=== PATIENT | female | born 1980 | race Caucasian/White ===

== ENCOUNTER → 2020-07-27 17:37 | Outpatient (CLI) | payer OTHER, SELFPAY ==
--- NOTE | 2020-07-27 | DI.MRI.S_ITS ---
PROCEDURE: MR PELVIS WO CON INDICATIONS: Sacrococcygeal disorders, not elsewhere classified TECHNIQUE: Noncontrast axial and oblique coronal T1 spin echo and STIR as well as sagittal STIR through the sacroiliac joints. COMPARISON: [facility] Outside [facility], CT, CT PELVIS WITHOUT CONTRAST, 06/18/2020, 7:19. [facility] Outside [facility], CR, XR SACRUM AND COCCYX, 04/29/2020, 7:31. FINDINGS: Image quality: Excellent. Bones: The sacroiliac joints demonstrate minimal joint space narrowing and osteophytosis inferiorly with minimal periarticular edema on the right. No adjacent bone marrow edema to suggest active sacroiliitis. No bony erosions. No bony ankylosis. No suspicious marrow space occupying lesions. Soft tissues: The visualized sacral plexus nerve roots appear within normal limits. No presacral masses. Visualized bowel loops appear normal in caliber and wall thickness. There is minimal free fluid within the visualized pelvis which appears within physiologic limits. IMPRESSION: 1. 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 2. No evidence of active sacroiliitis, ankylosis, or bony erosions. Dictated by: Conner Perales M.D. on 07/28/2020 at 10:01 Approved by: Conner Perales M.D. on 07/28/2020 at 10:09
== END ==
PROVIDERS: Referring Provider Orthopaedic Surgery Orthopaedic Surgery of the Spine; Visit Provider Orthopaedic Surgery Orthopaedic Surgery of the Spine
DX: M53.3 Sacrococcygeal disorders, not elsewhere classified (principal); M47.818 Spondylosis without myelopathy or radiculopathy, sacral and sacrococcygeal region
CPT/HCPCS: 72195

== ENCOUNTER → 2021-05-03 11:14 | Outpatient (CLI) | payer OTHER, SELFPAY ==
[2021-05-03 13:22] LABS: COVID19 -Nasal RAPID Negative (Negative)
== END ==
PROVIDERS: PCP Family Medicine; Visit Provider Physical Medicine & Rehabilitation
DX: Z20.822 Contact with and (suspected) exposure to COVID-19 (principal)
CPT/HCPCS: 87635; C9803

== ENCOUNTER 2021-05-04 14:56 | Outpatient (CLI) | payer OTHER, SELFPAY ==
[2021-05-04] VITALS (10 sets, daily range): BP systolic 103–137; BP diastolic 58–68; PULSE 65–82; RESP 12–24; TEMP 36.6; O2SAT 97–100
--- NOTE | 2021-05-04 14:57 | DI.RAD.S_ITS ---
PROCEDURE: PAIN SI JOINT INJECTION INDICATIONS: COCCYDYNIA COMPARISON: None. FINDINGS: Fluoroscopic spot filming was performed to verify placement of spinal needles at the lower sacral level(s), as labeled on the films. Appropriate location(s) of the needle tip(s) was confirmed by injection of iodinated contrast. IMPRESSION: Needle placement the lower sacral level. Dictated by: Bro Lawrence M.D. on 05/04/2021 at 16:33 Approved by: Bro Lawrence M.D. on 05/04/2021 at 16:43
[2021-05-04] MEDS: MIDAZOLAM 2 MG/2 ML VIAL IV (15:52)
[2021-05-04] MEDS: IOPAMIDOL 15 ML VIAL 3 ML INJ (15:53)
[2021-05-04] MEDS: BUPIVACAINE 0.5% (PF) VIAL 2 ML INJ (15:53)
[2021-05-04] MEDS: BETAMETHASONE 30 MG/5 ML MDV 12 MG INJ (15:53)
[2021-05-04] MEDS: fentaNYL 100 MCG/2 ML INJ (15:53)
--- NOTE | 2021-05-04 16:08 | P.PCN_ITS ---
Date/Time/Diagnoses Date of procedure: 05/04/21 Time of procedure: 16:08 Pre-procedure diagnosis: Coccydynia Post-procedure diagnosis: same Procedure Notes Procedure: Fluoroscopically guided contrast controlled Coccyx Injection Indications: Coccydynia Physician: Kei Hummel Total Fluoroscopy time (seconds): 14 Total sedation minutes: 15 Procedure in detail & Post-procedure care: DESCRIPTION OF PROCEDURE Fluoroscopic guided, contrast controlled coccyx injection Following review of allergies and review of potential side effects and complications, including, but not necessarily limited to, infection, allergic reaction, local tissue breakdown, temporary as well as permanent nerve injury, paralysis, stroke and possible , the patient indicated that they understood and agreed to proceed. An informed consent was signed by the patient, witnessed by a nurse, and placed in the patient's chart. Additionally, other treatment options including modalities, medications, and physical therapy were reviewed with the patient. After review of previous anaesthesic history and IV conscious sedation the patient was deemed safe to proceed with today?s procedure with IV conscious sedation as ASA class II designation. Safety time-out was performed to confirm patient ID, procedure to be performed and site of procedure. IV sedation was accomplished with a combination of 2mg of Versed and 50mcg of Fentanyl administered by the RN after DO order, titrated to patient comfort during the course of the procedure while the patient remained responsive to all verbal commands. In the prone position following sterile prep and drape of the pelvic region, the hyper lucency on in the inferior aspect of the coccyx joint was identified fluoroscopically the skin was anesthetized be a 25 gauge 1 eventual with approximately 2cc of 1% lidocaine solution. At this point, a 22 gauge 3inch spinal needle was atraumatically introduced and advanced under fluoroscopic guidance into the inferior aspect of the left sacroiliac joint. Following n egative aspiration, approximately 0.3cc of Isovue-300 was injected confirming intra-articular placement without vascular uptake. Radiographic data, including multiple fluoroscopic views of the pelvis, reveals a spinal needle in the coccyx. Subsequent view show flow contrast tear superiorly and inferiorly within the joint capsule without vascular intrathecal uptake. At this point a total of 1cc or 0.5% Marcaine was combined with 1cc of 6mg of betamethasone was injected without incident. The patient tolerated the procedure well without signs or symptoms of complications prior to transfer to the recovery area for further monitoring. The patient was then transferred to the recovery area with a bur observed for an appropriate time after the injection. The patient reverted a vas score of 7 prior to the procedure and postprocedure vas of 1. POSTOP INSTRUCTIONS The patient was provided with a pain like to continue to record the patient's response to the target specific procedure prior to the patient's follow-up visit with the referring physician. Additionally, specific post injection care instructions and a contact number to our office were provided if concerns arise regarding the possible complications associated with procedure are suspected.
== END 2021-05-04 16:25 | disposition home or self-care (01) ==
PROVIDERS: PCP Family Medicine; Referring Provider Physical Medicine & Rehabilitation; Visit Provider Physical Medicine & Rehabilitation
DX: M53.3 Sacrococcygeal disorders, not elsewhere classified (principal)
CPT/HCPCS: 27096; 99152; J0702; J2250; J3010

== ENCOUNTER → 2021-08-30 | Outpatient (CLI) | payer OTHER, SELFPAY ==
[2021-08-30 14:43] LABS: COVID19 -Nasal RAPID Negative (Negative)
== END ==
PROVIDERS: Visit Provider Physical Medicine & Rehabilitation
DX: Z20.822 Contact with and (suspected) exposure to COVID-19 (principal)
CPT/HCPCS: 87635; C9803

== ENCOUNTER 2021-08-31 15:18 | Outpatient (CLI) | payer OTHER, SELFPAY ==
[2021-08-31] VITALS (8 sets, daily range): BP systolic 108–135; BP diastolic 61–81; PULSE 70–86; RESP 13–20; O2SAT 98–100
--- NOTE | 2021-08-31 15:19 | DI.RAD.S_ITS ---
PROCEDURE: PAIN SI JOINT INJECTION INDICATIONS: COCCYGEAL DYSFUNTION COMPARISON: [facility], XA, PAIN SI JOINT INJECTION, 05/04/2021, 15:52. FINDINGS: Fluoroscopic spot filming was performed to verify placement of spinal needles at the distal coccyx level(s), as labeled on the films. Appropriate location(s) of the needle tip(s) was confirmed by injection of iodinated contrast. IMPRESSION: Fluoroscopically image needle placement of the distal coccyx. Dictated by: Coco Muhammad M.D. on 08/31/2021 at 17:09 Approved by: Coco Muhammad M.D. on 08/31/2021 at 17:10
[2021-08-31] MEDS: MIDAZOLAM 2 MG/2 ML VIAL IV (16:06)
[2021-08-31] MEDS: BETAMETHASONE 30 MG/5 ML MDV 12 MG INJ (16:12)
[2021-08-31] MEDS: IOPAMIDOL 15 ML VIAL 3 ML INJ (16:12)
[2021-08-31] MEDS: BUPIVACAINE 0.25% (PF) VIAL 5 ML INJ (16:12)
--- NOTE | 2021-08-31 16:27 | P.PCN_ITS ---
Date/Time/Diagnoses Date of procedure: 08/31/21 Time of procedure: 16:27 Pre-procedure diagnosis: Coccydynia Post-procedure diagnosis: same Procedure Notes Procedure: Fluoroscopically guided contrast controlled Coccyx Injection Indications: Coccydynia Physician: Kei Hummel Total Fluoroscopy time (seconds): 12 Total sedation minutes: 14 Procedure in detail & Post-procedure care: DESCRIPTION OF PROCEDURE Fluoroscopic guided, contrast controlled coccyx injection Following review of allergies and review of potential side effects and complications, including, but not necessarily limited to, infection, allergic reaction, local tissue breakdown, temporary as well as permanent nerve injury, paralysis, stroke and possible , the patient indicated that they understood and agreed to proceed. An informed consent was signed by the patient, witnessed by a nurse, and placed in the patient's chart. Additionally, other treatment options including modalities, medications, and physical therapy were reviewed with the patient. After review of previous anaesthesic history and IV conscious sedation the patient was deemed safe to proceed with today?s procedure with IV conscious sedation as ASA class II designation. Safety time-out was performed to confirm patient ID, procedure to be performed and site of procedure. IV sedation was accomplished with a combination of 2mg of Versed administered by the RN after DO order, titrated to patient comfort during the course of the procedure while the patient remained responsive to all verbal commands. In the prone position following sterile prep and drape of the pelvic region, the hyper lucency on in the inferior aspect of the coccyx joint was identified fluoroscopically the skin was anesthetized be a 25 gauge 1 eventual with approximately 2cc of 1% lidocaine solution. At this point, a 22 gauge 3inch spinal needle was atraumatically introduced and advanced under fluoroscopic guidance into the inferior aspect of the coccyx joint. Following negative aspiration, approximately 0.3cc of Isovue-300 was injected confirming intra- articular placement without vascular uptake. Radiographic data, including multiple fluoroscopic views of the pelvis, reveals a spinal needle in the coccyx. At this point a total of 1cc or 0.5% Marcaine was combined with 1cc of 6mg of betamethasone was injected without incident. The patient tolerated the procedure well without signs or symptoms of complications prior to transfer to the recovery area for further monitoring. The patient was then transferred to the recovery area with a bur observed for an appropriate time after the injection. The patient reverted a vas score of 7 prior to the procedure and postprocedure vas of 1. POSTOP INSTRUCTIONS The patient was provided with a pain like to continue to record the patient's response to the target specific procedure prior to the patient's follow-up visit with the referring physician. Additionally, specific post injection care instructions and a contact number to our office were provided if concerns arise regarding the possible complications associated with procedure are suspected.
== END 2021-08-31 16:36 | disposition home or self-care (01) ==
LOC: RAD 15:19
PROVIDERS: Referring Provider Physical Medicine & Rehabilitation; Visit Provider Physical Medicine & Rehabilitation
DX: M53.3 Sacrococcygeal disorders, not elsewhere classified (principal)
CPT/HCPCS: 27096; 99152; J0702; J1100; J2250

== ENCOUNTER 2022-01-11 14:52 | Outpatient (CLI) | payer OTHER, SELFPAY ==
[2022-01-11] VITALS (8 sets, daily range): BP systolic 109–136; BP diastolic 59–75; PULSE 68–87; RESP 15–20; TEMP 36.7; O2SAT 98–100
--- NOTE | 2022-01-11 15:26 | DI.RAD.S_ITS ---
PROCEDURE: PAIN SI JOINT INJECTION INDICATIONS: COCCYDYNIA COMPARISON: [facility], CT, CT PELVIS WITHOUT CONTRAST, 06/18/2020, 7:19. MR, MR PELVIS WO CON, 07/27/2020, 18:13. FINDINGS: Fluoroscopic spot filming was performed to verify placement of spinal needles at the coccyx level(s), as labeled on the films. Appropriate location(s) of the needle tip(s) was confirmed by injection of iodinated contrast. IMPRESSION: Fluoroscopy for pain management. Dictated by: Cyndy Ramos M.D. on 01/12/2022 at 8:19 Approved by: Cyndy Ramos M.D. on 01/12/2022 at 8:19
[2022-01-11] MEDS: MIDAZOLAM 2 MG/2 ML VIAL IV (16:34)
[2022-01-11] MEDS: BUPIVACAINE 0.5% (PF) VIAL 2 ML INJ (16:38)
[2022-01-11] MEDS: IOPAMIDOL 15 ML VIAL 3 ML INJ (16:39)
[2022-01-11] MEDS: DEXTROSE 25 % IN WATER 2.5 GM/10 ML SYRINGE IV (16:40)
--- NOTE | 2022-01-11 16:48 | PM.PROC.IR.1 ---
Date/Time/Diagnoses Date of procedure: 01/11/22 Time of procedure: 16:48 Pre-procedure diagnosis: Coccydynia Post-procedure diagnosis: same Procedure Notes Procedure: Fluoroscopically guided contrast controlled Coccyx Prolotherapy Injection Indications: Coccydynia Physician: Kei Hummel Total Fluoroscopy time (seconds): 5 Total sedation minutes: 10 Procedure in detail & Post-procedure care: DESCRIPTION OF PROCEDURE Fluoroscopic guided, contrast controlled coccyx prolotherapy injection Following review of allergies and review of potential side effects and complications, including, but not necessarily limited to, infection, allergic reaction, local tissue breakdown, temporary as well as permanent nerve injury, paralysis, stroke and possible , the patient indicated that they understood and agreed to proceed. An informed consent was signed by the patient, witnessed by a nurse, and placed in the patient's chart. Additionally, other treatment options including modalities, medications, and physical therapy were reviewed with the patient. After review of previous anaesthesic history and IV conscious sedation the patient was deemed safe to proceed with today?s procedure with IV conscious sedation as ASA class II designation. Safety time-out was performed to confirm patient ID, procedure to be performed and site of procedure. IV sedation was accomplished with a combination of 2mg of Versed administered by the RN after DO order, titrated to patient comfort during the course of the procedure while the patient remained responsive to all verbal commands. In the prone position following sterile prep and drape of the pelvic region, the hyper lucency on in the inferior aspect of the coccyx joint was identified fluoroscopically the skin was anesthetized be a 25 gauge 1.5 needle with approximately 2cc of 1% lidocaine solution. At this point, a 25 gauge 1.5 inch needle was atraumatically introduced and advanced under fluoroscopic guidance into the inferior aspect of the coccyx joint and sacro-coccyxgeal ligament complex. Following negative aspiration, approximately 0.3cc of Isovue-300 was injected confirming intra-articular placement without vascular uptake. Radiographic data, including multiple fluoroscopic views of the pelvis, reveals a spinal needle in the coccyx. At this point a total of 10cc of 20% dextrose solution was injected to the sacro-coccygeal joint and ligamentous complex without incident. The patient tolerated the procedure well without signs or symptoms of complications prior to transfer to the recovery area for further monitoring. The patient was then transferred to the recovery area with a bur observed for an appropriate time after the injection. The patient reverted a vas score of 7 prior to the procedure and postprocedure vas of 1. POSTOP INSTRUCTIONS The patient was provided with a pain like to continue to record the patient's response to the target specific procedure prior to the patient's follow-up visit with the referring physician. Additionally, specific post injection care instructions and a contact number to our office were provided if concerns arise regarding the possible complications associated with procedure are suspected.
== END 2022-01-11 17:09 | disposition home or self-care (01) ==
PROVIDERS: Referring Provider Physical Medicine & Rehabilitation; Visit Provider Physical Medicine & Rehabilitation
DX: M53.3 Sacrococcygeal disorders, not elsewhere classified (principal)
CPT/HCPCS: 27096; 99152; J2250

== ENCOUNTER 2022-05-12 09:00 | Outpatient (CLI) | payer OTHER, SELFPAY ==
[2022-05-12] VITALS (8 sets, daily range): BP systolic 108–135; BP diastolic 57–78; PULSE 65–90; RESP 16–19; TEMP 36.4; O2SAT 97–100
--- NOTE | 2022-05-12 09:01 | DI.RAD.S_ITS ---
PROCEDURE: PAIN SI JOINT INJECTION INDICATIONS: COCCYDYNIA COMPARISON: [facility], XA, PAIN SI JOINT INJECTION, 01/11/2022, 17:39. FINDINGS: Fluoroscopic spot filming was performed to verify placement of spinal needles at the inferior coccyx level(s), as labeled on the films. Appropriate location(s) of the needle tip(s) was confirmed by injection of iodinated contrast. IMPRESSION: Inferior coccyx needle placement. Dictated by: Yodit Calixto M.D. on 05/13/2022 at 8:09 Approved by: Yodit Calixto M.D. on 05/13/2022 at 8:09
--- NOTE | 2022-05-12 09:58 | P.PCN_ITS ---
Date/Time/Diagnoses Date of procedure: 05/12/22 Time of procedure: 09:58 Pre-procedure diagnosis: Pre-procedure diagnosis: Coccydynia Post-procedure diagnosis: same Procedure Notes Procedure: Fluoroscopic guided, contrast controlled coccyx prolotherapy injection Total Fluoroscopy time (seconds): 6 Total sedation minutes: 10 Procedure in detail & Post-procedure care: DESCRIPTION OF PROCEDURE Fluoroscopic guided, contrast controlled coccyx prolotherapy injection Following review of allergies and review of potential side effects and complications, including, but not necessarily limited to, infection, allergic reaction, local tissue breakdown, temporary as well as permanent nerve injury, paralysis, stroke and possible , the patient indicated that they understood and agreed to proceed.? An informed consent was signed by the patient, witnessed by a nurse, and placed in the patient's chart.? Additionally, other treatment options including modalities, medications, and physical therapy were reviewed with the patient. After review of previous anaesthesic history and IV conscious sedation the patient was deemed safe to proceed with today?s procedure with IV conscious sedation as ASA class II designation. Safety time-out was performed to confirm patient ID, procedure to be performed and site of procedure. IV sedation was accomplished with a combination of 2mg of Versed administered by the RN after DO order, titrated to patient comfort during the course of the procedure while the patient remained responsive to all verbal commands. In the prone position following sterile prep and drape of the pelvic region, the hyper lucency on in the inferior aspect of the coccyx joint was identified fluoroscopically the skin was anesthetized be a 25 gauge 1.5 needle with approximately 2cc of 1% lidocaine solution.? At this point, a 25 gauge 1.5 inch needle was atraumatically introduced and advanced under fluoroscopic guidance into the inferior aspect of the coccyx joint and sacro-coccyxgeal ligament complex.? Following negative aspiration, approximately 0.3cc of Isovue-300 was injected confirming intra-articular placement without vascular uptake. Radiographic data, including multiple fluoroscopic views of the pelvis, reveals a spinal needle in the coccyx. ? At this point a total of 20cc of 20% dextrose solution was injected to the sacro-coccygeal joint and ligamentous complex without incident. The patient tolerated the procedure well without signs or symptoms of comp lications prior to transfer to the recovery area for further monitoring. The patient was then transferred to the recovery area with a bur observed for an appropriate time after the injection.? The patient reverted a vas score of 7 prior to the procedure and postprocedure vas of 1. POSTOP INSTRUCTIONS The patient was provided with a pain like to continue to record the patient's response to the target specific procedure prior to the patient's follow-up visit with the referring physician.? Additionally, specific post injection care instructions and a contact number to our office were provided if concerns arise regarding the possible complications associated with procedure are suspected.
[2022-05-12] MEDS: MIDAZOLAM 2 MG/2 ML VIAL IV (10:00)
[2022-05-12] MEDS: BUPIVACAINE 0.5% (PF) 10 ML VIAL 5 ML SUBCUT (10:06)
[2022-05-12] MEDS: IOPAMIDOL 15 ML VIAL 3 ML INJ (10:08)
[2022-05-12] MEDS: DEXTROSE 25 % IN WATER 2.5 GM/10 ML SYRINGE IV ×2 (10:08→10:12)
== END 2022-05-12 10:35 | disposition home or self-care (01) ==
PROVIDERS: Referring Provider Physical Medicine & Rehabilitation; Visit Provider Physical Medicine & Rehabilitation
DX: M53.3 Sacrococcygeal disorders, not elsewhere classified (principal)
CPT/HCPCS: 27096; 99152; J0702; J2250

== ENCOUNTER 2022-08-30 15:30 | Outpatient (CLI) | payer OTHER, SELFPAY ==
[2022-08-30] VITALS (9 sets, daily range): BP systolic 118–134; BP diastolic 57–66; PULSE 71–84; RESP 13–18; TEMP 36.6; O2SAT 97–100
--- NOTE | 2022-08-30 15:31 | DI.RAD.S_ITS ---
PROCEDURE: PAIN SI JOINT INJECTION INDICATIONS: COCCYGEAL DYSFUNCTION COMPARISON: [facility], XA, PAIN SI JOINT INJECTION, 05/12/2022, 10:05. FINDINGS: Fluoroscopic spot filming was performed to verify placement of spinal needles of the distal coccyx. Appropriate location(s) of the needle tip(s) was confirmed by injection of iodinated contrast. IMPRESSION: Intraprocedural examination within normal limits. Dictated by: Shane Rich M.D. on 08/30/2022 at 15:35 Approved by: Shane Rich M.D. on 08/30/2022 at 15:36
[2022-08-30] MEDS: MIDAZOLAM 2 MG/2 ML VIAL IV (15:57)
[2022-08-30] MEDS: DEXTROSE 25 % IN WATER 2.5 GM/10 ML SYRINGE 5 GM IV (16:01)
[2022-08-30] MEDS: BUPIVACAINE 0.5% (PF) 10 ML VIAL 2 ML INJ (16:01)
[2022-08-30] MEDS: IOPAMIDOL 15 ML VIAL 3 ML INJ (16:01)
--- NOTE | 2022-08-30 16:21 | PM.PROC.IR.1 ---
Date/Time/Diagnoses Date of procedure: 08/30/22 Time of procedure: 16:21 Pre-procedure diagnosis: Coccydynia Post-procedure diagnosis: same Procedure Notes Procedure: Fluoroscopically guided coccyx injection with prolotherapy Indications: Laura is referred for Coccydynia with Ligamentous Laxity Physician: Kei Hummel Total Fluoroscopy time (seconds): 6 Total sedation minutes: 15 Complications: none Procedure in detail & Post-procedure care: Following review of allergies and review of potential side effects and complications, including, but not necessarily limited to, infection, allergic reaction, local tissue breakdown, temporary as well as permanent nerve injury, paralysis, stroke and possible , the patient indicated that they understood and agreed to proceed.? An informed consent was signed by the patient, witnessed by a nurse, and placed in the patient's chart.? Additionally, other treatment options including modalities, medications, and physical therapy were reviewed with the patient. After review of previous anaesthesic history and IV conscious sedation the patient was deemed safe to proceed with today?s procedure with IV conscious sedation as ASA class II designation. Safety time-out was performed to confirm patient ID, procedure to be performed and site of procedure. IV sedation was accomplished with a combination of 2mg of Versed administered by the RN after DO order, titrated to patient comfort during the course of the procedure while the patient remained responsive to all verbal commands. In the prone position following sterile prep and drape of the pelvic region, the hyper lucency on in the inferior aspect of the coccyx joint was identified fluoroscopically the skin was anesthetized be a 25 gauge 1.5 needle with approximately 2cc of 1% lidocaine solution.? At this point, a 25 gauge 1.5 inch needle was atraumatically introduced and advanced under fluoroscopic guidance into the inferior aspect of the coccyx joint and sacro-coccyxgeal ligament complex.? Following negative aspiration, approximately 0.3cc of Isovue-300 was injected confirming intra-articular placement without vascular uptake. Radiographic data, including multiple fluoroscopic views of the pelvis, reveals a spinal needle in the coccyx. ? At this point a total of 10cc of 20% dextrose solution was injected to the sacro-coccygeal joint and ligamentous complex without incident. The patient tolerated the procedure well without signs or symptoms of complications prior to transfer to the recovery area for further monitoring. The patient was then transferred to the recovery area with a bur observed for an appropriate time after the injection.? The patient reverted a vas score of 7 prior to the procedure and postprocedure vas of 1. POSTOP INSTRUCTIONS The patient was provided with a pain like to continue to record the patient's response to the target specific procedure prior to the patient's follow-up visit with the referring physician.? Additionally, specific post injection care instructions and a contact number to our office were provided if concerns arise regarding the possible complications associated with procedure are suspected.
== END 2022-08-30 16:36 | disposition home or self-care (01) ==
LOC: RAD 15:31
PROVIDERS: Referring Provider Physical Medicine & Rehabilitation; Visit Provider Physical Medicine & Rehabilitation
DX: M53.3 Sacrococcygeal disorders, not elsewhere classified (principal)
CPT/HCPCS: 27096; 99152; J2250

== ENCOUNTER → 2023-01-13 16:26 | Outpatient (CLI) | payer OTHER, SELFPAY ==
--- NOTE | 2023-01-13 | DI.MG.S_ITS ---
BILATERAL DIGITAL SCREENING MAMMOGRAM 3D/2D WITH CAD: 01/13/2023 CLINICAL: Routine screening. Family history of breast cancer. Baseline exam. No prior exams were available for comparison. Both breasts are heterogeneously dense, which may obscure small masses (category c / 51-75% glandular tissue). Current study was also evaluated with a Computer Aided Detection (CAD) system. There is a focal asymmetry in the left breast at lower inner quadrant at middle depth. No other significant masses, calcifications, or other findings are seen in either breast. IMPRESSION: INCOMPLETE: NEEDS ADDITIONAL IMAGING EVALUATION The focal asymmetry in the left breast is indeterminate. A diagnostic mammogram and ultrasound is recommended. Based on Tyrer-Cuzick model (a risk assessment model), the patient's lifetime risk is 22.9% and her 10 year risk is 3.0%. If a patient has an elevated risk, a more comprehensive evaluation should be considered and/or a referral to a genetic counselor. The [place] [employer], [place] [employer], and NCCN Guidelines advise the consideration of Breast MRI as an adjunct to screening mammography in patients whose Lifetime risk to develop breast cancer is 20% or higher. This exam was interpreted at Station ID: [id number]. NOTE: For mammograms, a report in lay terms will be sent to the patient. Approximately 15% of breast malignancies will not be visualized mammographically. In the management of a palpable breast mass, a negative mammogram must not discourage biopsy of a clinically suspicious lesion. Electronically Signed By: Farrah Hopper M.D., PH.D eb/:01/15/2023 00:43:58 letter sent: Additional Imaging Needed ACR BI-RADS Category 0: Incomplete [id number]
== END ==
PROVIDERS: Referring Provider Internal Medicine; Visit Provider Internal Medicine
DX: Z12.31 Encounter for screening mammogram for malignant neoplasm of breast (principal); Z80.3 Family history of malignant neoplasm of breast
CPT/HCPCS: 77063; 77067

== ENCOUNTER → 2023-04-20 08:37 | Outpatient (CLI) | payer OTHER, SELFPAY ==
--- NOTE | 2023-04-20 | DI.US.S_ITS ---
ULTRASOUND OF LEFT BREAST AND AXILLA: 04/20/2023 CLINICAL: Patient returns today to evaluate a focal asymmetry in the left breast. Comparison is made to exams dated: 04/20/2023 mammogram and 01/13/2023 mammogram - [facility]. Color flow and real-time ultrasound of the left breast axilla were performed. Bo scale images of the real-time examination were reviewed. There are two adjacent irregular masses in the left breast superior medial quadrant middle depth 6 cm from the nipple at 10:30 o'clcock. These irregular masses are hypoechoic with internal echoes and no posterior acoustic shadowing or enhancement. These correlate with mammography findings. Color flow imaging demonstrates that there is no vascularity present. One measures 1.3 x 0.5 x 0.8cm and the second measures 0.7 x 0.3 x 0.5 cm. These are approximately 0.4cm apart from each other. No significant abnormalities were seen sonographically in the left axilla. IMPRESSION: SUSPICIOUS OF MALIGNANCY The two irregular masses in the left breast at 10:30 oclock middle depth have a differential diagnosis of complex cysts, a solid mass, or complicated cysts and are suspicious of malignancy. An ultrasound guided biopsy is recommended. No sonographic abnormalities identified in the axilla. No axillary adenopathy. Findings and recommendations were discussed with the patient by Dr. Lewis during today's examination. This exam was interpreted at Station ID: [id number]. Electronically Signed By: Alex Francis M.D. aty/:04/20/2023 09:49:05 letter sent: Biopsy Required Ultrasound BI-RADS: 4 Suspicious for malignancy
--- NOTE | 2023-04-20 | DI.MG.S_ITS ---
UNILATERAL LEFT DIGITAL DIAGNOSTIC MAMMOGRAM 3D/2D WITH ADDITIONAL VIEWS: 04/20/2023 CLINICAL: Additional evaluation requested from prior study. Comparison is made to exam dated: 01/13/2023 mammogram - [facility]. The left breast is heterogeneously dense, which may obscure small masses (category c / 51-75% glandular tissue). There is an oval equal density focal asymmetry in the left breast at 10 o'clock middle depth. This is seen in additional views. No other significant masses or calcifications are seen in the breast. IMPRESSION: INCOMPLETE: NEEDS ADDITIONAL IMAGING EVALUATION The oval equal density focal asymmetry in the left breast is indeterminate. An ultrasound is recommended for further evaluation and is scheduled to immediately follow this examination. Based on Tyrer-Cuzick model (a risk assessment model), the patient's lifetime risk is 23.4% and her 10 year risk is 3.1%. If a patient has an elevated risk, a more comprehensive evaluation should be considered and/or a referral to a genetic counselor. The [place] [employer], [place] [employer], and NCCN Guidelines advise the consideration of Breast MRI as an adjunct to screening mammography in patients whose Lifetime risk to develop breast cancer is 20% or higher. This exam was interpreted at Station ID: [id number]. NOTE: For mammograms, a report in lay terms will be sent to the patient. Approximately 15% of breast malignancies will not be visualized mammographically. In the management of a palpable breast mass, a negative mammogram must not discourage biopsy of a clinically suspicious lesion. Electronically Signed By: Alex Francis M.D. aty/:04/20/2023 09:41:23 ACR BI-RADS Category 0: Incomplete [id number]
== END ==
LOC: MAMMO 08:38
PROVIDERS: Referring Provider Internal Medicine; Visit Provider Internal Medicine
DX: R92.8 Other abnormal and inconclusive findings on diagnostic imaging of breast (principal); N63.22 Unspecified lump in the left breast, upper inner quadrant
CPT/HCPCS: 76642; 77065; G0279

== ENCOUNTER → 2023-05-08 | Outpatient (CLI) | payer OTHER, SELFPAY ==
--- NOTE | 2023-05-08 | PATH_ITS ---
[facility] Accession Number: [id number] No. of containers..01 Tissue . 01 Material submitted: . breast - LEFT BREAST 10:30 6CMFN . 01 Clinical history: . LEFT BREAST 10:30 6CMFN POSTERIOR MASS . 01 Diagnosis: LEFT BREAST 10:30, 6 CM FROM NIPPLE, POSTERIOR MASS, NEEDLE CORE BIOPSY: Fragments of fibroepithelial lesion, consistent with fibroadenoma, and fragments of benign breast tissue with scattered fibroadenomatoid changes. Negative for atypia or malignancy. MRV 05/11/2023 1735 Local . 01 Comment: As part of ongoing quality control director, this case is also reviewed by Dr. Nkechi Waller, who concurs with the given interpretation. . 01 Electronically signed: . Nazia Sifuentes MD, Pathologist NPI- [id number] . 01 Gross description: . Received is one formalin-filled container labeled with the patient's name, lableed left breast 10:30 6 cm FN post.. The specimen is received with a filter in container and sample loose in container, and consists of multiple light yellow-zhou to zhou gayle pieces of tissue and clotted blood which range in size from less than 0.1 cm to 1.2 x 0.2 x 0.2 cm. All fragments are totally in submitted in cassettes A1-A2. Possible collection date and time per requisition 05/08/2023 at 0947 hours, total fixation time approximately 17 hours. (DC:[id number]) /RICKI 05/09/2023 0636 Local . 01 Pathologist provided ICD-10: R92.8 . 01 CPT . 527334 [facility]: [facility] [address] [place] [address] [address], [place] [id number] MD Conner Jordan MD Phone: [phone]
--- NOTE | 2023-05-08 | PATH_ITS ---
[facility] Accession Number: [id number] No. of containers..01 Tissue . 01 Material submitted: . breast - LEFT BREAST 10:30 6CMFN ANTERIOR MASS . 01 Clinical history: . LEFT BREAST 10:30 6CMFN ANTERIOR MASS . 01 Diagnosis: LEFT BREAST 10:30, 6 CM FROM NIPPLE, ANTERIOR MASS, NEEDLE CORE BIOPSY: Benign breast tissue with fibroadenomatoid changes. Negative for atypia or malignancy. MRV 05/11/2023 1732 Local . 01 Comment: As part of ongoing quality checker, this case is also reviewed by Dr. Nkechi Waller, who concurs with the given interpretation. . 01 Electronically signed: . Nazia Sifuentes MD, Pathologist NPI- [id number] . 01 Gross description: . Received is one formalin-filled container labeled with the patient's name labeled left breast 10:30 6 cm FN ant.. The specimen was received with plastic filter in container and tissue loose in container with some in plastic filter, and consists of multiple fragments of light yellow-zhou to zhou-gayle tissue and clotted blood which range in size from less than 0.1 cm to 1.2 x 0.3 x 0.3 cm. All fragments are totally submitted in cassettes A1-A2. Possible collection date and time per requisition 05/08/2023 at 0947 hours. Total fixation time approximately 17 hours. (DC:[id number]) /RICKI 05/09/2023 0639 Local . 01 Pathologist provided ICD-10: R92.8 . 01 CPT . 439653 [facility]formed [facility]: [facility] [address] [place] [address], [place], [place] [id number] MD Conner Jordan MD Phone: [phone]
--- NOTE | 2023-05-08 07:48 | DI.US.S_ITS ---
MULTIPLE ULTRASOUND GUIDED BIOPSIES LEFT BREAST USING VACUUM DEVICE WITH POST MAMMOGRAPHIC AND ULTRASOUND IMAGIN05/08/2023 CLINICAL: Left breast masses 10:30 6cmfn anterior PATIENT CONSENT: Risks (minor bleeding, infection, vasovagal reaction and repeat procedure), benefits and alternatives were explained to the patient and written informed consent was obtained. Correlation is made to exams dated: 05/08/2023 mammogram, 04/20/2023 ultrasound, 04/20/2023 mammogram, and 01/13/2023 mammogram - [facility]. An ultrasound guided biopsy using real-time ultrasound was performed for the oval mass measuring 1.3 x 0.5 x 0.8 cm located in the left breast at 10:30 o'clock middle depth. This was described on the previous ultrasound report. The skin was prepped in the usual manner. Local anesthetic was administered to the access site. The abnormality was approached from the lateral aspect. A 13 gauge biopsy needle was placed adjacent to the abnormality under ultrasound guidance. Once the needle was documented to be in the correct location, six specimens were obtained using the Mammotome biopsy system. Post procedure mammographic and ultrasound imaging demonstrates the clip at the targeted area. The specimens were sent to the laboratory for pathological analysis. A second ultrasound guided biopsy using real-time ultrasound was performed for the 0.7 x 0.3 x 0.5 cm oval mass located at 10:30 o'clock left breast posterior depth. This was described on the previous ultrasound report. The skin was prepped in the usual manner. Local anesthetic was administered to the access site. The abnormality was approached from the lateral aspect. A 13 gauge biopsy needle was placed adjacent to the abnormality under ultrasound guidance. Once the needle was documented to be in the correct location, five specimens were obtained using the Mammotome biopsy system. Post procedure mammographic and ultrasound imaging demonstrates the clip at the targeted area. The specimens were sent to the laboratory for pathological analysis. IMPRESSION: ULTRASOUND GUIDED BIOPSY BENIGN Ultrasound guided biopsy of the mass in the left breast at 10:30 o'clock middle depth was successful. Pathology indicates benign breast tissue with fibroadenomatoid changes. Negative for atypia or malignancy. Pathology results are concordant with imaging findings. Ultrasound guided biopsy of the mass in the left breast 10:30 o'clock posterior depth was successful. Pathology indicates benign fragments of fibroepithelial lesion, consistent with fibroadenoma, and fragments of benign breast tissue with scattered fibroadenomatoid changes. Negative for atypia or malignancy. Pathology results are concordant with imaging findings. This exam was interpreted at Station ID: [id number]. celeste Lovelace M.D., M.D./:05/16/2023 14:15:12
--- NOTE | 2023-05-08 07:48 | DI.MG.S_ITS ---
UNILATERAL LEFT DIGITAL DIAGNOSTIC MAMMOGRAM 3D/2D POST-PROCEDURE IMAGING FOR MARKER PLACEMENT: 05/08/2023 CLINICAL: Post clip placement. Comparison is made to exams dated: 04/20/2023 ultrasound, 04/20/2023 mammogram, and 01/13/2023 mammogram - [facility]. The left breast is heterogeneously dense, which may obscure small masses (category c / 51-75% glandular tissue). Biopsy clips are present at the biopsy sites at the 10:30 of the breast. IMPRESSION: POST PROCEDURE MAMMOGRAM FOR MARKER PLACEMENT Biopsy clips are present at the biopsy sites. Based on Tyrer-Cuzick model (a risk assessment model), the patient's lifetime risk is 23.4% and her 10 year risk is 3.1%. If a patient has an elevated risk, a more comprehensive evaluation should be considered and/or a referral to a genetic counselor. The [place] [employer], [place] [employer], and NCCN Guidelines advise the consideration of Breast MRI as an adjunct to screening mammography in patients whose Lifetime risk to develop breast cancer is 20% or higher. This exam was interpreted at Station ID: [id number]. NOTE: For mammograms, a report in lay terms will be sent to the patient. Approximately 15% of breast malignancies will not be visualized mammographically. In the management of a palpable breast mass, a negative mammogram must not discourage biopsy of a clinically suspicious lesion. Electronically Signed By: Cyndy Ramos M.D. fx/:05/08/2023 12:44:56 ACR BI-RADS Category Post-procedure mammogram for marker placement
== END ==
PROVIDERS: Referring Provider Internal Medicine; Visit Provider Internal Medicine
DX: N60.32 Fibrosclerosis of left breast; N63.22 Unspecified lump in the left breast, upper inner quadrant; R92.332 Mammographic heterogeneous density, left breast
CPT/HCPCS: 19083; 19084; 77065

== ENCOUNTER → 2023-07-17 16:10 | Outpatient (CLI) | payer OTHER, SELFPAY ==
--- NOTE | 2023-07-17 16:11 | DI.RAD.S_ITS ---
PROCEDURE: XR SACRUM COCCYX MIN 2V INDICATIONS: coccydynia TECHNIQUE: 3 views of the sacrum and coccyx acquired. COMPARISON: None. FINDINGS: Bones: No fractures or dislocations. No suspicious bony lesions. Soft tissues: Visualized bowel gas pattern is normal. No suspicious soft tissue densities. IUD IMPRESSION: No acute bony abnormality. Dictated by: Martir Dao M.D. on 07/17/2023 at 17:36 Approved by: Martir Dao M.D. on 07/17/2023 at 17:36
== END ==
PROVIDERS: Referring Provider Physical Medicine & Rehabilitation; Visit Provider Physical Medicine & Rehabilitation
DX: M53.3 Sacrococcygeal disorders, not elsewhere classified (principal)
CPT/HCPCS: 72220; 99214

== ENCOUNTER 2023-08-01 12:48 | Outpatient (CLI) | payer OTHER, SELFPAY ==
[2023-08-01] VITALS (9 sets, daily range): BP systolic 101–120; BP diastolic 55–72; PULSE 67–87; RESP 16–20; TEMP 36.6; O2SAT 98–100
--- NOTE | 2023-08-01 13:30 | DI.RAD.S_ITS ---
PROCEDURE: PAIN SI JOINT INJECTION INDICATIONS: coccy PROLOTHERAPY injection COMPARISON: [facility], , PAIN SI JOINT INJECTION, 08/30/2022, 16:02. FINDINGS: Fluoroscopic spot filming was performed to verify placement of spinal needles at the coccyx level(s), as labeled on the films. Appropriate location(s) of the needle tip(s) was confirmed by injection of iodinated contrast. IMPRESSION: Fluoro guidance was provided intraoperatively for coccyx prolotherapy injection performed by ordering physician. Dictated by: Ken Barnes M.D. on 08/01/2023 at 15:07 Approved by: Ken Barnes M.D. on 08/01/2023 at 15:08
[2023-08-01] MEDS: MIDAZOLAM 2 MG/2 ML VIAL IV (13:59)
[2023-08-01] MEDS: iopamidoL 15 ML VIAL 3 ML INJ (14:05)
[2023-08-01] MEDS: BUPIVACAINE 0.5% (PF) 10 ML VIAL 5 ML INJ (14:05)
--- NOTE | 2023-08-01 14:20 | PM.PROC.IR.1 ---
Date/Time/Diagnoses Date of procedure: 08/01/23 Time of procedure: 14:20 Pre-procedure diagnosis: Coccydynia Post-procedure diagnosis: same Procedure Notes Procedure: Fluoroscopically guided coccyx injection with prolotherapy Indications: Laura is referred for Coccydynia with Ligamentous Laxity Physician: Kei Hummel Total Fluoroscopy time (seconds): 5 Total sedation minutes: 15 Complications: none Procedure in detail & Post-procedure care: Following review of allergies and review of potential side effects and complications, including, but not necessarily limited to, infection, allergic reaction, local tissue breakdown, temporary as well as permanent nerve injury, paralysis, stroke and possible , the patient indicated that they understood and agreed to proceed.? An informed consent was signed by the patient, witnessed by a nurse, and placed in the patient's chart.? Additionally, other treatment options including modalities, medications, and physical therapy were reviewed with the patient. After review of previous anaesthesic history and IV conscious sedation the patient was deemed safe to proceed with today?s procedure with IV conscious sedation as ASA class II designation. Safety time-out was performed to confirm patient ID, procedure to be performed and site of procedure. IV sedation was accomplished with a combination of 2mg of Versed administered by the RN after DO order, titrated to patient comfort during the course of the procedure while the patient remained responsive to all verbal commands. In the prone position following sterile prep and drape of the pelvic region, the hyper lucency on in the inferior aspect of the coccyx joint was identified fluoroscopically the skin was anesthetized be a 25 gauge 1.5 needle with approximately 2cc of 1% lidocaine solution.? At this point, a 25 gauge 1.5 inch needle was atraumatically introduced and advanced under fluoroscopic guidance into the inferior aspect of the coccyx joint and sacro-coccyxgeal ligament complex.? Following negative aspiration, approximately 0.3cc of Isovue-300 was injected confirming intra-articular placement without vascular uptake. Radiographic data, including multiple fluoroscopic views of the pelvis, reveals a spinal needle in the coccyx. ? At this point a total of 20cc of 25% dextrose solution was injected to the sacro-coccygeal joint and ligamentous complex without incident. The patient tolerated the procedure well without signs or symptoms of complications prior to transfer to the recovery area for further monitoring. The patient was then transferred to the recovery area with a bur observed for an appropriate time after the injection.? The patient reverted a vas score of 7 prior to the procedure and postprocedure vas of 1. POSTOP INSTRUCTIONS The patient was provided with a pain like to continue to record the patient's response to the target specific procedure prior to the patient's follow-up visit with the referring physician.? Additionally, specific post injection care instructions and a contact number to our office were provided if concerns arise regarding the possible complications associated with procedure are suspected.
--- NOTE | 2023-08-02 14:54 | PC.NURSE ---
3552 Patient post-procedural call made. Patient states that she is doing well and has no questions or concerns at this time. Patient advised to call the clinic if anything changes or if she has any questions or concerns.
== END 2023-08-01 14:35 | disposition home or self-care (01) ==
PROVIDERS: Referring Provider Physical Medicine & Rehabilitation; Visit Provider Physical Medicine & Rehabilitation
DX: M53.3 Sacrococcygeal disorders, not elsewhere classified (principal)
CPT/HCPCS: 27096; 99152; J2250

== ENCOUNTER 2023-12-07 12:20 | Outpatient (CLI) | payer OTHER, SELFPAY ==
[2023-12-07] VITALS (9 sets, daily range): BP systolic 109–121; BP diastolic 53–69; PULSE 73–93; RESP 16–18; O2SAT 96–100
--- NOTE | 2023-12-07 13:00 | DI.RAD.S_ITS ---
PROCEDURE: PAIN SI JOINT INJECTION INDICATIONS: COCCYXDINIA COMPARISON: [facility], XA, PAIN SI JOINT INJECTION, 08/01/2023, 14:06. FINDINGS: Fluoroscopic spot filming was performed to verify placement of spinal needles at the coccyx level(s), as labeled on the films. Appropriate location(s) of the needle tip(s) was confirmed by injection of iodinated contrast. IMPRESSION: Intra procedural examination demonstrating appropriate positions of the needles. Dictated by: Nasim Calderon M.D. on 12/07/2023 at 16:07 Approved by: Nasim Calderon M.D. on 12/07/2023 at 16:07
[2023-12-07] MEDS: MIDAZOLAM 2 MG/2 ML VIAL IV (13:52)
[2023-12-07] MEDS: DEXAMETHASONE 10 MG/ML VIAL INJ (13:56)
[2023-12-07] MEDS: BUPIVACAINE 0.5% (PF) 10 ML VIAL 2 ML INJ (13:56)
[2023-12-07] MEDS: BETAMETHASONE 30 MG/5 ML MDV 6 MG INJ (13:57)
[2023-12-07] MEDS: iopamidoL 15 ML VIAL 3 ML INJ (13:57)
--- NOTE | 2023-12-07 14:11 | PM.PROC.IR.1 ---
Date/Time/Diagnoses Date of procedure: 12/07/23 Time of procedure: 14:12 Pre-procedure diagnosis: Coccydynia Procedure Notes Procedure: Fluoroscopically guided contrast controlled Coccyx Injection Indications: Coccydynia Physician: Kei Hummel Total Fluoroscopy time (seconds): 8 Total sedation minutes: 16 Procedure in detail & Post-procedure care: DESCRIPTION OF PROCEDURE Fluoroscopic guided, contrast controlled coccyx injection Following review of allergies and review of potential side effects and complications, including, but not necessarily limited to, infection, allergic reaction, local tissue breakdown, temporary as well as permanent nerve injury, paralysis, stroke and possible , the patient indicated that they understood and agreed to proceed. An informed consent was signed by the patient, witnessed by a nurse, and placed in the patient's chart. Additionally, other treatment options including modalities, medications, and physical therapy were reviewed with the patient. After review of previous anaesthesic history and IV conscious sedation the patient was deemed safe to proceed with today?s procedure with IV conscious sedation as ASA class II designation. Safety time-out was performed to confirm patient ID, procedure to be performed and site of procedure. IV sedation was accomplished with a combination of 2mg of Versed administered by the RN after DO order, titrated to patient comfort during the course of the procedure while the patient remained responsive to all verbal commands. In the prone position following sterile prep and drape of the pelvic region, the hyper lucency on in the inferior aspect of the coccyx joint was identified fluoroscopically the skin was anesthetized be a 25 gauge 1 eventual with approximately 2cc of 1% lidocaine solution. At this point, a 22 gauge 3inch spinal needle was atraumatically introduced and advanced under fluoroscopic guidance into the inferior aspect of the left sacroiliac joint. Following negative aspiration, approximately 0.3cc of Isovue-300 was injected confirming intra-articular placement without vascular uptake. Radiographic data, including multiple fluoroscopic views of the pelvis, reveals a spinal needle in the coccyx. Subsequent view show flow contrast tear superiorly and inferiorly within the joint capsule without vascular intrathecal uptake. At this point a total of 1cc or 0.5% Marcaine was combined with 1cc of 6mg of betamethasone was injected without incident. The patient tolerated the procedure well without signs or symptoms of complications prior to transfer to the recovery area for further monitoring. The patient was then transferred to the recovery area with a bur observed for an appropriate time after the injection. The patient reverted a vas score of 7 prior to the procedure and postprocedure vas of 1. POSTOP INSTRUCTIONS The patient was provided with a pain like to continue to record the patient's response to the target specific procedure prior to the patient's follow-up visit with the referring physician. Additionally, specific post injection care instructions and a contact number to our office were provided if concerns arise regarding the possible complications associated with procedure are suspected.
== END 2023-12-07 14:30 | disposition home or self-care (01) ==
LOC: RAD 12:21
PROVIDERS: Referring Provider Physical Medicine & Rehabilitation; Visit Provider Physical Medicine & Rehabilitation
DX: M53.3 Sacrococcygeal disorders, not elsewhere classified (principal)
CPT/HCPCS: 27096; 99152; J0702; J1100; J2250

== ENCOUNTER → 2024-03-08 08:10 | Outpatient (CLI) | payer OTHER, SELFPAY ==
--- NOTE | 2024-03-08 08:10 | DI.MRI.S_ITS ---
PROCEDURE: MR PELVIS WO CON INDICATIONS: coccydynia and sacral dysfunction TECHNIQUE: Noncontrast axial and oblique coronal T1 spin echo and STIR through the sacroiliac joints. COMPARISON: [facility], , MR PELVIS WO CON, 07/27/2020, 18:13. FINDINGS: Image quality: Excellent. Bones: Very mild degenerative changes in the sacroiliac joints bilaterally. Mild cellular marrow throughout the visualized osseous structures, which remain mildly hyperintense to skeletal muscle on T1-weighted images. No adjacent bone marrow edema to suggest active sacroiliitis. No bony ankylosis. No suspicious marrow space occupying lesions. Moderate facet hypertrophy at the lower lumbar spine with bilateral synovial cysts dorsal to the facet joints measuring up to 7 mm on the right and 9 mm on the left. Soft tissues: No presacral masses. Rectum appears normal in caliber and wall thickness. No pathologic free pelvic fluid. Piriformis muscles are symmetric. Intrauterine device is partially imaged. Trace pelvic free fluid is likely physiologic. IMPRESSION: 1. Minimal sacroiliac osteoarthrosis. No signs of sacroiliitis. No acute trabecular bone injury. 2. Moderate facet hypertrophy at the lower lumbar spine with bilateral synovial cysts projecting dorsally. 3. Cellular marrow throughout the visualized osseous structures likely reactive in a young woman, but correlation with laboratory findings is suggested to exclude anemia or a chronic marrow infiltrating process. Approved by: Shane Sanches M.D. on 03/08/2024 at 17:04
== END ==
PROVIDERS: Referring Provider Physical Medicine & Rehabilitation; Visit Provider Physical Medicine & Rehabilitation
DX: M53.3 Sacrococcygeal disorders, not elsewhere classified (principal); M47.898 Other spondylosis, sacral and sacrococcygeal region; M47.816 Spondylosis without myelopathy or radiculopathy, lumbar region; M71.352 Other bursal cyst, left hip; M71.351 Other bursal cyst, right hip
CPT/HCPCS: 72195

== ENCOUNTER 2024-03-12 10:50 | Outpatient (CLI) | payer OTHER, SELFPAY ==
[2024-03-12] VITALS (8 sets, daily range): BP systolic 102–124; BP diastolic 56–66; PULSE 76–99; RESP 14–18; TEMP 36.2; O2SAT 98–100
--- NOTE | 2024-03-12 10:50 | DI.RAD.S_ITS ---
PROCEDURE: PAIN SI JOINT INJECTION INDICATIONS: left SI joint COMPARISON: [facility], XA, PAIN SI JOINT INJECTION, 12/07/2023, 13:59. FINDINGS/IMPRESSION: Fluoroscopic spot filming was performed to verify placement of spinal needles at the left sacroiliac joint, as labeled on the films. Appropriate location(s) of the needle tip(s) was confirmed by injection of iodinated contrast. Dictated by: Nasim Calderon M.D. on 03/12/2024 at 15:13 Approved by: Nasim Calderon M.D. on 03/12/2024 at 15:13
[2024-03-12] MEDS: MIDAZOLAM 2 MG/2 ML VIAL IV (12:38)
[2024-03-12] MEDS: BETAMETHASONE 30 MG/5 ML MDV 12 MG INJ (12:42)
[2024-03-12] MEDS: BUPIVACAINE 0.5% (PF) 10 ML VIAL 2 ML INJ (12:43)
[2024-03-12] MEDS: iopamidoL 15 ML VIAL 3 ML INJ (12:43)
--- NOTE | 2024-03-12 13:00 | PM.PROC.IR.1 ---
Date/Time/Diagnoses Date of procedure: 03/12/24 Time of procedure: 13:00 Pre-procedure diagnosis: Sacroiliac Joint Pain/DJD Post-procedure diagnosis: same Procedure Notes Procedure: Fluoroscopically guided contrast controlled left sacroiliac joint injection Indications: Laura is referred for treatment of left sacroiliac joint DJD Physician: Kei Hummel Total Fluoroscopy time (seconds): 12 Total sedation minutes: 15 Complications: none Procedure in detail & Post-procedure care: DESCRIPTION OF PROCEDURE Fluoroscopic guided, contrast controlled left sacroiliac joint injection Following review of allergies and review of potential side effects and complications, including, but not necessarily limited to, infection, allergic reaction, local tissue breakdown, temporary as well as permanent nerve injury, paralysis, stroke and possible , the patient indicated that they understood and agreed to proceed. An informed consent was signed by the patient, witnessed by a nurse, and placed in the patient's chart. Additionally, other treatment options including modalities, medications, and physical therapy were reviewed with the patient. After review of previous anaesthesic history and IV conscious sedation the patient was deemed safe to proceed with today?s procedure with IV conscious sedation as ASA class II designation. Safety time-out was performed to confirm patient ID, procedure to be performed and site of procedure. IV sedation was accomplished with a combination of 2mg of Versed administered by the RN after DO order, titrated to patient comfort during the course of the procedure while the patient remained responsive to all verbal commands. In the prone position following sterile prep and drape of the pelvic region, the hyper lucency on in the inferior aspect of the left sacroiliac joint was identified fluoroscopically the skin was anesthetized be a 25 gauge 1 eventual with approximately 2cc of 1% lidocaine solution. At this point, a 22 gauge 3inch spinal needle was atraumatically introduced and advanced under fluoroscopic guidance into the inferior aspect of the left sacroiliac joint. Following negative aspiration, approximately 0.3cc of Isovue-300 was injected confirming intra-articular placement without vascular uptake. Radiographic data, including multiple fluoroscopic views of the pelvis, reveals a spinal needle in the left sacroiliac joint hyper lucent zone. Subsequent view show flow contrast tear superiorly and inferiorly within the joint capsule without vascular intrathecal uptake. At this point a total of 1cc or 0.5% Marcaine was combined with 1cc of 6mg of betamethasone was injected without incident. The patient tolerated the procedure well without signs or symptoms of complications prior to transfer to the recovery area for further monitoring. The patient was then transferred to the recovery area with a bur observed for an appropriate time after the injection. The patient reverted a vas score of 7 prior to the procedure and postprocedure vas of 1. POSTOP INSTRUCTIONS The patient was provided with a pain like to continue to record the patient's response to the target specific procedure prior to the patient's follow-up visit with the referring physician. Additionally, specific post injection care instructions and a contact number to our office were provided if concerns arise regarding the possible complications associated with procedure are suspected.
== END 2024-03-12 13:15 | disposition home or self-care (01) ==
LOC: RAD 10:50
PROVIDERS: Referring Provider Physical Medicine & Rehabilitation; Visit Provider Physical Medicine & Rehabilitation
DX: M53.3 Sacrococcygeal disorders, not elsewhere classified (principal)
CPT/HCPCS: 27096; 99152; J0702; J2250

== ENCOUNTER → 2024-04-24 16:44 | Outpatient (CLI) | payer OTHER, SELFPAY ==
--- NOTE | 2024-04-24 16:45 | DI.MG.S_ITS ---
MM screening mammo BI: 04/24/2024. BI-RADS: 2 CLINICAL: 43-year old female for bilateral screening mammogram. Tyrer-Cuzick lifetime risk of 37.1%. Current reported family history of breast cancer: mother and sister. History of ovarian cancer in two or more first-degree relatives. The patient had a prior left breast biopsy. PRIOR EXAMS 05/08/2023, 04/20/2023, 01/13/2023. MAMMOGRAPHY TECHNIQUE: 2D and 3D (tomosynthesis) digital mammographic views obtained, with additional images as needed for full coverage. Current study was also evaluated with a Computer Aided Detection (CAD) system. DENSITY C. The breasts are heterogeneously dense, which may obscure small masses. MAMMOGRAPHY FINDINGS Right: There are no suspicious masses, calcifications, or other findings in the breast. Left: Biopsy markers present on the left. There are no suspicious masses, calcifications, or other findings in the breast. IMPRESSION: * No evidence of malignancy with benign findings. RECOMMENDATIONS Bilateral * According to the Tyrer-Cuzick Risk Assessment Model, based on the information provided your patient has a greater than 20% lifetime risk for developing breast cancer. Consider supplemental screening with breast MRI and participation in a high risk screening program. * Annual screening mammography. OVERALL ASSESSMENT CATEGORY BI-RADS-2: Benign. The [employer] recommends annual screening mammography beginning at age 40 for women with average risk of breast cancer. ELECTRONICALLY SIGNED: Yasmeen Crowley M.D. on 04/25/2024 at 09:15:10 AM PT Interpreting Station ID: [id number]
== END ==
PROVIDERS: PCP Internal Medicine; Referring Provider Internal Medicine; Visit Provider Internal Medicine
DX: R92.333 Mammographic heterogeneous density, bilateral breasts (principal); Z12.39 Encounter for other screening for malignant neoplasm of breast; Z80.3 Family history of malignant neoplasm of breast; Z80.41 Family history of malignant neoplasm of ovary
CPT/HCPCS: 77063; 77067

== ENCOUNTER 2024-10-31 14:27 | Outpatient (CLI) | payer OTHER, SELFPAY ==
[2024-10-31] VITALS (8 sets, daily range): BP systolic 99–114; BP diastolic 54–60; PULSE 69–89; RESP 14–18; TEMP 36.6; O2SAT 98–100
[2024-10-31] MEDS: MIDAZOLAM 2 MG/2 ML VIAL IV (15:36)
[2024-10-31] MEDS: BETAMETHASONE 30 MG/5 ML MDV 6 MG INJ (15:42)
--- NOTE | 2024-10-31 15:52 | PM.PROC.IR.1 ---
Date/Time/Diagnoses Date of procedure: 10/31/24 Time of procedure: 15:52 Pre-procedure diagnosis: Sacroiliac Joint Pain/DJD Post-procedure diagnosis: same Procedure Notes Procedure: Fluoroscopically guided contrast controlled left sacroiliac joint injection Indications: Laura is referred by Dr. Betts for treatment of left sacroiliac joint DJD Physician: Kei Hummel Total Fluoroscopy time (seconds): 8 Total sedation minutes: 10 Complications: none Procedure in detail & Post-procedure care: DESCRIPTION OF PROCEDURE Fluoroscopic guided, contrast controlled left sacroiliac joint injection Following review of allergies and review of potential side effects and complications, including, but not necessarily limited to, infection, allergic reaction, local tissue breakdown, temporary as well as permanent nerve injury, paralysis, stroke and possible , the patient indicated that they understood and agreed to proceed. An informed consent was signed by the patient, witnessed by a nurse, and placed in the patient's chart. Additionally, other treatment options including modalities, medications, and physical therapy were reviewed with the patient. After review of previous anaesthesic history and IV conscious sedation the patient was deemed safe to proceed with today?s procedure with IV conscious sedation as ASA class II designation. Safety time-out was performed to confirm patient ID, procedure to be performed and site of procedure. IV sedation was accomplished with a combination of 2mg of Versed administered by the RN after DO order, titrated to patient comfort during the course of the procedure while the patient remained responsive to all verbal commands. In the prone position following sterile prep and drape of the pelvic region, the hyper lucency on in the inferior aspect of the left sacroiliac joint was identified fluoroscopically the skin was anesthetized be a 25 gauge 1 eventual with approximately 2cc of 1% lidocaine solution. At this point, a 22 gauge 3inch spinal needle was atraumatically introduced and advanced under fluoroscopic guidance into the inferior aspect of the left sacroiliac joint. Following negative aspiration, approximately 0.3cc of Isovue-300 was injected confirming intra-articular placement without vascular uptake. Radiographic data, including multiple fluoroscopic views of the pelvis, reveals a spinal needle in the left sacroiliac joint hyper lucent zone. Subsequent view show flow contrast tear superiorly and inferiorly within the joint capsule without vascular intrathecal uptake. At this point a total of 1cc or 0.5% Marcaine was combined with 2cc of 80mg of depo medrol and 10mg dexamethasone was injected without incident. The patient tolerated the procedure well without signs or symptoms of complications prior to transfer to the recovery area for further monitoring. The patient was then transferred to the recovery area with a bur observed for an appropriate time after the injection. The patient reverted a vas score of 7 prior to the procedure and postprocedure vas of 1. POSTOP INSTRUCTIONS The patient was provided with a pain like to continue to record the patient's response to the target specific procedure prior to the patient's follow-up visit with the referring physician. Additionally, specific post injection care instructions and a contact number to our office were provided if concerns arise regarding the possible complications associated with procedure are suspected.
== END 2024-10-31 16:08 | disposition home or self-care (01) ==
LOC: RAD 14:28
PROVIDERS: PCP Internal Medicine; Referring Provider Internal Medicine; Visit Provider Physical Medicine & Rehabilitation
DX: M53.3 Sacrococcygeal disorders, not elsewhere classified (principal); M46.1 Sacroiliitis, not elsewhere classified
CPT/HCPCS: 27096; 99152; J0702; J1010; J1100; J2250

== ENCOUNTER → 2024-11-01 11:02 | Outpatient (CLI) | payer OTHER, SELFPAY ==
--- NOTE | 2024-11-01 11:05 | DI.MRI.S_ITS ---
MR breast BI wo/w con: 11/01/2024. BI-RADS: 2 CLINICAL: 44-year old female for bilateral diagnostic breast MRI. Current reported family history of breast cancer: mother and sister. History of ovarian cancer in two or more first-degree relatives. The patient had a prior left breast biopsy. PRIOR EXAMS Mammogram(s): 04/24/2024. Five Other Exams on 05/08/2023, 04/20/2023, 01/13/2023. MRI TECHNIQUE Bilateral breast MRI was performed on a 1.5 Doretha magnet using a dedicated breast coil with mild compression. Axial T1 and T2 STIR sequences were obtained. Dynamic contrast enhanced VIBRANT fat-suppressed sequences were obtained. Delayed sagittal high resolution or sagittal reconstructed isotropic sequence was also obtained. Subtraction images and maximum intensity projection images were obtained. The study was evaluated using [employer] software. IV Contrast: 20 ml ProHance. FIBROGLANDULAR TISSUE Bilateral: B. Scattered fibroglandular tissue. BACKGROUND PARENCHYMAL ENHANCEMENT Bilateral: Mild symmetrical background parenchymal enhancement. BREAST FINDINGS Right: No suspicious mass, suspicious non-mass enhancement, or other concerning finding identified. Left: Surgical clip(s) and/or marker(s) present on the left. There is no suspicious finding with benign findings noted. IMPRESSION: Right * No evidence of malignancy. Left * No evidence of malignancy with benign findings. RECOMMENDATIONS Bilateral * According to the Tyrer-Cuzick Risk Assessment Model, based on the information provided your patient has a greater than 20% lifetime risk for developing breast cancer. Consider supplemental screening with breast MRI and participation in a high risk screening program. * Annual screening mammography. OVERALL ASSESSMENT CATEGORY BI-RADS-2: Benign. ELECTRONICALLY SIGNED: Farrah Hopper M.D. on 11/01/2024 at 05:30:38 PM PT Interpreting Station ID: [id number]
== END ==
PROVIDERS: PCP Internal Medicine; Referring Provider Internal Medicine; Visit Provider Internal Medicine
DX: Z12.39 Encounter for other screening for malignant neoplasm of breast (principal); Z80.3 Family history of malignant neoplasm of breast; Z80.41 Family history of malignant neoplasm of ovary
CPT/HCPCS: 77049; A9579